=== PATIENT | female | born 1975 | race African-American/Black ===

== ENCOUNTER 2017-05-22 13:42 | Emergency (ER) | payer SELFPAY ==
[2017-05-22] MEDS ORDERED: NORMAL SALINE 1000 ML 1,000 ML IV PRN (14:02)
--- NOTE | 2017-05-22 14:03 | ER Document Report ---
ED Medical Screen (RME) - General Chief Complaint: Dizziness Stated Complaint: BLURRY VISION Time Seen by Provider: 05/22/17 14:02 Notes: Patient complains of a month of progressing weakness dizziness and shortness of breath. She denies any pain. No vomiting or diarrhea. She states she has diabetes but her blood sugars have been controlled for the last month. No problems with urination. TRAVEL OUTSIDE OF THE [place] IN LAST 30 DAYS: No - Related Data Allergies/Adverse Reactions: No Known Allergies Allergy (Unverified 05/22/17 13:50) Past Medical History - Social History Frequency of alcohol use: None Drug Abuse: None Renal/ Medical History: Denies: Hx Peritoneal Dialysis Physical Exam - Vital signs Vitals: Temp Pulse Resp BP Pulse Ox 98.9 F 82 16 130/84 H 96 05/22/17 13:50 05/22/17 13:50 05/22/17 13:50 05/22/17 13:50 05/22/17 13:50 Course - Vital Signs Vital signs: Temp Pulse Resp BP Pulse Ox 98.9 F 82 16 130/84 H 96 05/22/17 13:50 05/22/17 13:50 05/22/17 13:50 05/22/17 13:50 05/22/17 13:50
[2017-05-22 14:46] LABS: ABSOLUTE LYMPHOCYTES (AUTO) 1.3 10^3/uL (0.5-4.7); ABSOLUTE MONOCYTES (AUTO) 0.3 10^3/uL (0.1-1.4); ABSOLUTE NEUT (AUTO) 3.5 10^3/uL (1.7-8.2); BASOPHILS % (AUTO) 0.9 % (0-2); EOSINOPHILS % (AUTO) 0.5 % (0-6); HEMATOCRIT 35.8 % (36.0-47.0); HEMOGLOBIN 11.5 g/dL (12.0-15.5); HGB HCT DIFFERENCE -1.3; LYMPHOCYTES % (AUTO) 25.7 % (13-45); MEAN CORPUSCULAR HEMOGLOBIN 27.4 pg (27.0-33.4); MEAN CORPUSCULAR HGB CONC 32.2 g/dL (32.0-36.0); MEAN CORPUSCULAR VOLUME 85 fl (80-97); MONOCYTES % (AUTO) 6.7 % (3-13); RED CELL DISTRIBUTION WIDTH 13.7 % (11.5-14.0); SEGMENTED NEUTROPHILS % (AUTO) 66.2 % (42-78); WHITE BLOOD COUNT 5.2 10^3/uL (4.0-10.5)
[2017-05-22 14:51] LABS: APPEARANCE,URINE SLIGHTLY-CLOUDY; BILIRUBIN,URINE NEGATIVE (NEGATIVE); GLUCOSE, URINE NEGATIVE (NEGATIVE); KETONES,URINE 20 mg/dL (NEGATIVE); LEUKOCYTE ESTERASE,URINE TRACE (NEGATIVE); NITRITE,URINE NEGATIVE (NEGATIVE); PROTEIN,URINE NEGATIVE (NEGATIVE); URINE SPECIFIC GRAVITY 1.019
[2017-05-22 15:05] LABS: ALANINE AMINOTRANSFERASE 83 U/L (9-52); ALBUMIN 4.4 g/dL (3.5-5.0); ALKALINE PHOSPHATASE 86 U/L (38-126); ANION GAP 13 (5-19); ASPARTATE AMINO TRANSFERASE 44 U/L (14-36); BILIRUBIN,DIRECT 0.4 mg/dL (0.0-0.4); BILIRUBIN,TOTAL 0.8 mg/dL (0.2-1.3); BLOOD UREA NITROGEN 9 mg/dL (7-20); CALCIUM 10.8 mg/dL (8.4-10.2); CARBON DIOXIDE 27 mmol/L (22-30); CHLORIDE 100 mmol/L (98-107); CREATININE RESULT 0.68 mg/dL (0.52-1.25); GLUCOSE 128 mg/dL (75-110); POTASSIUM 3.9 mmol/L (3.6-5.0); SODIUM 140.3 mmol/L (137-145); TOTAL PROTEIN 7.9 g/dL (6.3-8.2)
[2017-05-22] MEDS ORDERED: MECLIZINE HCL 25 MG TABLET PO ONE (15:16)
--- NOTE | 2017-05-22 15:24 | ER Document Report ---
ED Dizziness/Weakness - General Chief Complaint: Dizziness Stated Complaint: BLURRY VISION Time Seen by Provider: 05/22/17 14:02 Mode of Arrival: Ambulatory Information source: Patient Notes: This 42-year-old female patient with depression and schizoaffective disorder comes emergency room complaining of a one-month history of progressive weakness , fatigue, shortness of breath and loss of appetite with weight loss. She does have a history of type 2 diabetes treated with metformin. She reports she has had 2 days of dizziness and blurred vision. She denies anything that makes the symptoms better or worse. She takes an Invega shot and Trintellix for her schizoaffective disorder and depression. She goes to the [facility] in [place] for her medical care, and to [facility] in [place] for psychiatric care. She does work in [place] at a [employer]. She lives in [place]. This is her first visit coming to this facility. She states she decided to come because the symptoms of been going on for so long. TRAVEL OUTSIDE OF THE [place] IN LAST 30 DAYS: No - Related Data Allergies/Adverse Reactions: No Known Allergies Allergy (Unverified 05/22/17 13:50) Past Medical History - General Information source: Patient - Social History Smoking Status: Never Smoker Cigarette use (# per day): No Chew tobacco use (# tins/day): No Smoking Education Provided: No Frequency of alcohol use: None Drug Abuse: None Occupation: [employer] Lives with: Family Family History: Reviewed & Not Pertinent Patient has suicidal ideation: No Patient has homicidal ideation: No Endocrine Medical History: Reports: Hx Diabetes Mellitus Type 2 Psychiatric Medical History: Reports: Hx Bipolar Disorder, Hx Depression, Hx Schizoaffective Disorder Surgical Hx: Negative Review of Systems - Review of Systems Constitutional: Weakness, Other - Fatigue EENT: Blurred vision Cardiovascular: No symptoms reported Respiratory: See HPI, Short of breath Gastrointestinal: Poor appetite, Other - Weight loss Genitourinary: No symptoms reported Female Genitourinary: No symptoms reported Musculoskeletal: No symptoms reported Skin: No symptoms reported Hematologic/Lymphatic: No symptoms reported Neurological/Psychological: Depression Physical Exam - Vital signs Vitals: Temp Pulse Resp BP Pulse Ox 98.9 F 82 16 130/84 H 96 05/22/17 13:50 05/22/17 13:50 05/22/17 13:50 05/22/17 13:50 05/22/17 13:50 Interpretation: Normal - General General appearance: Appears well In distress: None Notes: The patient does seem to have an almost a motionless face with flat affect consistent with her diagnosis of bipolar schizoaffective disorder. - HEENT Head: Normocephalic, Atraumatic Eyes: Normal Extraocular movements intact: Yes - The does not appear to be lateral gaze nystagmus on exam. Pupils: PERRL Pharynx: Normal Neck: Normal - Respiratory Respiratory status: No respiratory distress Breath sounds: Normal - Cardiovascular Rhythm: Regular Heart sounds: Normal auscultation Murmur: No - Abdominal Inspection: Normal Bowel sounds: Normal Tenderness: Nontender - Back Back: Normal - Extremities General upper extremity: Normal inspection General lower extremity: Normal inspection - Neurological Neuro grossly intact: No Cognition: Normal Orientation: AAOx4 Bud Coma Scale Verbal: Oriented Lares Coma Scale Motor: Obeys Commands Speech: Normal Cranial nerves: Normal Notes: Patient seems to be a little hyperreflexic at the biceps tendons particularly on the left. She also seems to be somewhat jumpy or jerky as she is talking with me. It is difficult to tell if this is neurologic or psychiatric given her history and the remainder of the exam. - Psychological Associated symptoms: Flat affect Course - Vital Signs Vital signs: Temp Pulse Resp BP Pulse Ox 98.1 F 80 18 136/79 H 97 05/22/17 16:32 05/22/17 16:32 05/22/17 16:32 05/22/17 16:32 05/22/17 16:32 - Laboratory Result Diagrams: 05/22/17 14:20 05/22/17 14:20 Laboratory results interpreted by me: 05/22/17 05/22/17 05/22/17 14:20 14:20 14:20 Hgb 11.5 L Hct 35.8 L Glucose 128 H Calcium 10.8 H AST 44 H ALT 83 H Urine Ketones 20 H Urine Urobilinogen 4.0 H Ur Leukocyte Esterase TRACE H - Diagnostic Test Radiology reviewed: Image reviewed, Reports reviewed - CT of the head is unremarkable Discharge - Discharge Clinical Impression: Dizziness, Weakness, Blurred vision, bilateral Fatigue Qualifiers: Fatigue type: other Qualified Code(s): R53.83 - Other fatigue Condition: Stable Disposition: HOME, SELF-CARE Additional Instructions: Fatigue: Fatigue can be caused by many medical and emotional problems. Fatigue can be an early symptom of infection, or can be caused by chronic infection. It can be a symptom of metabolic diseases like diabetes, hypothyroidism, or anemia. It can result from sleep problems such as sleep apnea. Fatigue can be a symptom of depression. Overuse of alcohol or caffeine can cause fatigue. Many drugs can cause fatigue, either as a side effect or when withdrawing from the drug. Until the evaluation is complete, try to keep up your normal activities. Get regular sleep hours, but avoid oversleeping. Try to get regular exercise. Eliminate alcohol, caffeine, and any unnecessary drugs, herbs, or medicines ( discuss any changes in prescription medicines with your doctor). Contact the doctor if there is any change for the worse. Weakness: We did not find a definite cause for your weakness. This may require further medical tests. Weakness can be caused by infection, physical exhaustion , rapid weight loss, dehydration, or medicine side effects. Diseases of the muscles, heart, nerves, and blood vessels can make you weak. Sometimes the problem is simply depression or lack of exercise. You should get plenty of rest. Unless the doctor tells you otherwise, it's usually best to add short periods of regular mild exercise. Eat a nutritious diet with multiple small, low-sugar meals. If symptoms continue, additional medical evaluation will be necessary. Be sure to follow up as instructed. If you become very dizzy, nauseated, or feel like you're going to faint, lie down right away. Wait until the symptoms have passed before you get up again. Stand up slowly. Call the doctor or return if you develop chest pain, abdominal pain, severe headache, irregular heartbeat or very fast pulse, confusion, vision problems, fever, muscular pain, or any other new symptom. Vertigo: Your dizziness may be caused by vertigo. Vertigo is often caused by an irritation of the inner ear, in which case it is called labyrinthitis. It can also be a symptom of a degenerating inner ear, nerve damage, or brain injury. Your physician has evaluated you to determine whether any further testing is necessary. Vertigo is often treated with dramamine or meclizine. These medications are helpful, but stronger medication may be needed if you are vomiting. Rest in bed. You should not drive or operate machinery until completely better. It may take one to three weeks for recovery. If there are new symptoms, such as decreased hearing or vision, severe headache, weakness or faintness, or confusion, call the physician. Your dizziness may be due to vertigo. //////////////////////////////////////////////////////////////////////////////// //////////////////////////////////////////////////////////////////////////////// /////////////////// No clear explanation is found for your multitude of symptoms involving dizziness , fatigue, weakness, blurred vision, and loss of appetite. You may have some vertigo. We will prescribe the medication to lessen those symptoms of dizziness. You should follow-up with an eye doctor to check your eyes and vision tomorrow if you still have blurred vision. Follow-up with a local medical doctor for further evaluation of your other complaints if not improving. RETURN TO THE EMERGENCY ROOM IF ANY NEW OR WORSENING SYMPTOMS. Prescriptions: Meclizine HCl [Antivert 25 mg Tablet] 25 mg PO TID PRN #20 tablet PRN Reason:
--- NOTE | 2017-05-22 15:37 | RADIOLOGY REPORT (SQ) ---
EXAM DESCRIPTION: CT HEAD WITHOUT COMPLETED DATE/TIME: 05/22/2017 3:28 pm REASON FOR STUDY: dizzy, blurred vision COMPARISON: None. TECHNIQUE: Axial images acquired through the brain without intravenous contrast. Images reviewed wi th bone, brain and subdural windows. Images stored on PACS. All CT scanners at this facility use dose modulation, iterative reconstruction, and/or weight based d osing when appropriate to reduce radiation dose to as low as reasonably achievable (ALARA). [facility]: Dose Right [facility]: CareDose [facility]: Dose Right [facility]: Teradose 4D [facility]: [employer] RADIATION DOSE: Up-to-date CT equipment and radiation dose reduction techniques were employed. CTDIv ol: 64.6 mGy. DLP: 1034 mGy-cm. mGy. LIMITATIONS: Motion artifact throughout the study FINDINGS: Motion artifact throughout the study. No gross acute intracranial hemorrhage mass effect or midline shift. No CT evidence of large territory acute ischemic change. Paranasal sinuses and mastoid air cells clear. IMPRESSION: Motion artifact. No gross acute changes COMMENT: Quality ID # [id number]: Final reports with documentation of one or more dose reduction techniques (e.g., Automated exposure control, adjustment of the mA and/or kV according to patient size, use of iterative reconstruction technique) TECHNICAL DOCUMENTATION: JOB ID: [id number] [employer]- All Rights Reserved
[2017-05-22 16:34] VITALS: BP 136/79
== END 2017-05-22 16:55 | disposition home or self-care (01) ==
LOC: ER 13:42
DX: R42 Dizziness and giddiness (principal); H53.8 Other visual disturbances; R53.83 Other fatigue; R53.1 Weakness; F32.9 Major depressive disorder, single episode, unspecified; F25.9 Schizoaffective disorder, unspecified; R06.02 Shortness of breath; R63.0 Anorexia; E11.9 Type 2 diabetes mellitus without complications
CPT/HCPCS: 99284; 96360; 36415; 84443; 85025; 81025; 80053; 81001; 70450; J7030